=== PATIENT | male | born 1955 | race Caucasian/White ===

== ENCOUNTER 2016-07-15 08:14 | Outpatient (CLI) | payer OTHER | END 2016-07-15 08:15 | disposition home or self-care (01) | LOC: LAB.F 08:14 | PROVIDERS: ATTEND Urology | DX: Z85.46 Personal history of malignant neoplasm of prostate (principal) | CPT/HCPCS: 36415; 84153 ==

== ENCOUNTER 2016-08-09 08:27 | Day surgery (SDC) | payer OTHER ==
[2016-08-09] MEDS ORDERED: LACTATED RINGERS 1,000 ML IV ONE (08:57)
[2016-08-09] MEDS ORDERED: fentaNYL 100 MCG/2 ML VIAL IVP ONE (09:10)
[2016-08-09] MEDS ORDERED: MIDAZOLAM 2 MG/2 ML VIAL IVP ONE (09:10)
[2016-08-09 09:11] LABS: BASOPHILS % (AUTO) 0.7 %; EOSINOPHILS # (AUTO) 0.3 10^3/uL (0.0-0.7); EOSINOPHILS % (AUTO) 5.3 %; HCT - HEMATOCRIT 41.2 % (42.0-52.0); HGB - HEMOGLOBIN 14.2 g/dL (14.0-18.0); LYMPHOCYTES # (AUTO) 1.6 10^3/uL (1.5-3.5); LYMPHOCYTES % (AUTO) 32.1 %; MEAN CORPUSCULAR HEMOGLOBIN 30.6 pg (27.0-31.0); MEAN CORPUSCULAR HGB CONC 34.5 g/dL (32.0-36.0); MEAN CORPUSCULAR VOLUME 88.6 fL (80.0-94.0); MEAN PLATELET VOLUME 7.6 fL (7.4-11.4); MONOCYTES # (AUTO) 0.4 10^3/uL (0.0-1.0); MONOCYTES % (AUTO) 8.1 %; NEUTROPHILS # (AUTO) 2.7 10^3/uL (1.5-6.6); NEUTROPHILS % (AUTO) 53.8 %; RED BLOOD COUNT 4.65 10^6/uL (4.70-6.10)
--- NOTE | 2016-08-09 10:11 | POST OP PROGRESS NOTE ---
Subjective - General Procedure Date: 08/09/16 (outpt procedure) Post Op Days: 1 Procedure Performed: colonoscopy with polypectomy Surgery Impression Plan - FEN FEN: Preop dx: h/o colon polyps Postop dx: 1. colon polyp x3; 2. mild diverticulosis Procedure: colonoscopy with polypectomy (snare and cold bx forceps) Surgeon: Deloris Pagan MD Anesthesia: conscious sedation Procedure: After informed consent was obtained, the pt was taken to the endo room and placed in the lateral decubitus position. A time-out was done and IV sedation was given. A rectal exam was done and small hemorrhoids were noted. The scope was then inserted and guided under direct visualization. The pt was noted to has mild scattered diverticula in the sigmoid and left colon. 2 polyps were noted very close to each other at 40cm and removed by hot snare polypectomy and sent together. An additional polyp was noted at 90cm and was removed peicemeal with the cold bx forceps. The entire polyp was removed, then the polypectomy site was cauterized. The scope was advanced to the cecum which was identified by landmarks. The scope was then slowly withdrawn while carefully visualizing the colon wall. No other polyps or abnormalities were seen. The scope was removed. The pt was sent to the recovery area in stable condition with no immediate postop complications.
[2016-08-09 11:21] VITALS: BP 119/66
== END 2016-08-09 08:28 | disposition home or self-care (01) ==
LOC: SDS 08:27
PROVIDERS: ATTEND Surgery
PROC: 0DBE8ZX Excision of Large Intestine, Via Natural or Artificial Opening Endoscopic, Diagnostic (ICD-10-PCS; principal; 2016-08-09 09:30)
DX: K63.5 Polyp of colon (principal); K64.4 Residual hemorrhoidal skin tags; K57.30 Diverticulosis of large intestine without perforation or abscess without bleeding; E66.9 Obesity, unspecified; G47.30 Sleep apnea, unspecified; Z68.35 Body mass index [BMI] 35.0-35.9, adult; Z85.46 Personal history of malignant neoplasm of prostate
CPT/HCPCS: 45380; 45385; 85025; J7120; 88305

== ENCOUNTER 2016-08-15 15:17 | Outpatient (CLI) | payer OTHER | END 2016-08-15 15:18 | disposition home or self-care (01) | LOC: SC 15:17 | PROVIDERS: ATTEND Nurse Practitioner Family | DX: G47.33 Obstructive sleep apnea (adult) (pediatric) (principal) | CPT/HCPCS: 99212; 99213 ==

== ENCOUNTER 2017-05-01 17:30 | Emergency (ER) | payer OTHER ==
[2017-05-01] MEDS ORDERED: MORPHINE 2 MG/ML CARPUJECT IVP STA (17:58)
--- NOTE | 2017-05-01 18:00 | ED Physician Documentation ---
PD HPI ABD PAIN - Stated complaint Stated Complaint: LWR L ABD PAIN - Chief complaint Chief Complaint: Abd Pain - History obtained from History obtained from: Patient - History of Present Illness Timing - onset: Other (Had 4 hours of left lower quadrant pain 2 nights ago and it recurred earlier this afternoon. It is sharp and he feels like he might have diarrhea but he has not had any. He is also been a little nauseous but is not currently. Pain does not radiate. He had a colonoscopy in the middle of last year showing polyps and diverticula. He has never had diverticulosis.) Review of Systems Ten Systems: 10 systems reviewed and negative Constitutional: denies: Fever, Chills Cardiac: denies: Chest pain / pressure, Palpitations Respiratory: denies: Dyspnea, Cough PD PAST MEDICAL HISTORY - Past Medical History Cardiovascular: None Respiratory: Sleep apnea, CPAP use Endocrine/Autoimmune: None GI: Colon polyps : Other HEENT: Chronic vision loss, Dental implants Psych: Depression Musculoskeletal: None Derm: Psoriasis - Past Surgical History General: Colonoscopy, Other HEENT: Other - Present Medications Home Medications: Ambulatory Orders Medication Instructions Recorded Confirmed Cyanocobalamin (Vitamin B-12) 1,000 mcg PO DAILY 08/09/16 08/09/16 [Vitamin B-12] HYDROcod/ACETAM 5/325 [[place] 5/325] 1 - 2 ea PO Q6H PRN #15 tablet 05/01/17 Tamsulosin [Flomax] 0.4 mg PO DAILY #14 capsule 05/01/17 - Allergies Allergies/Adverse Reactions: Allergies Allergy/AdvReac Type Severity Reaction Status Date / Time No Known Drug Allergies Allergy Verified 05/01/17 17:42 - Social History Does the pt smoke?: No Smoking Status: Never smoker Does the pt drink ETOH?: No Does the pt have substance abuse?: No PD ED PE NORMAL - Vitals Vital signs reviewed: Yes - General General: Alert and oriented X 3, No acute distress - HEENT HEENT: Other (Periorbital droop on the right, chronic per patient) - Cardiac Cardiac: RRR, No murmur - Respiratory Respiratory: No respiratory distress, Clear bilaterally - Abdomen Abdomen: Normal bowel sounds, Soft, Other (Mild tenderness left lower quadrant without surgical signs) - Back Back: No CVA TTP, No spinal TTP - Extremities Extremities: No edema - Neuro Neuro: Alert and oriented X 3, Normal speech Results - Vitals Vitals: Vital Signs - 24 hr 05/01/17 17:37 Temperature 37.2 C Heart Rate 72 Respiratory 18 Rate Blood Pressure 135/82 H O2 Saturation 97 Oxygen O2 Source Room air - Labs Labs: Laboratory Tests 05/01/17 05/01/17 05/01/17 18:10 18:10 18:30 WBC 12.8 H RBC 4.78 Hgb 14.3 Hct 43.0 MCV 89.8 MCH 30.0 MCHC 33.4 RDW 12.6 Plt Count 237 MPV 7.6 Neut # 10.9 H Lymph # 1.0 L Darke # 0.7 Eos # 0.1 Baso # 0.0 Absolute Nucleated RBC 0.00 Nucleated RBC % 0.0 Sodium 142 Potassium 4.1 Chloride 109 Carbon Dioxide 25 Anion Gap 8.0 BUN 20 Creatinine 1.3 H Estimated GFR (MDRD) 56 L Glucose 116 H Calcium 9.0 Total Bilirubin 0.3 AST 24 ALT 26 Alkaline Phosphatase 72 Total Protein 7.5 Albumin 4.2 Globulin 3.3 Albumin/Globulin Ratio 1.3 Lipase 24 Urine Color YELLOW Urine Clarity HAZY Urine pH 5.5 Ur Specific [place] >=1.030 H Urine Protein NEGATIVE Urine Glucose (UA) NEGATIVE Urine Ketones NEGATIVE Urine Occult Blood SMALL H Urine Nitrite NEGATIVE Urine Bilirubin NEGATIVE Urine Urobilinogen 0.2 (NORMAL) Ur Leukocyte Esterase NEGATIVE Urine RBC 0-5 Urine WBC 0-3 Ur Squamous Epith Cells NONE SEEN Urine Bacteria None Seen Ur Microscopic Review INDICATED Urine Culture Comments NOT INDICATED - Rads (name of study) CT A/P Radiology: EMP read contemporaneously (3mm L UVJ stone) PD MEDICAL DECISION MAKING - ED course ED course: 62-year-old gentleman with history of diverticulosis with a days worth of left lower quadrant pain and a benign examination. Found by CT imaging to have a 3 mm left UVJ stone without evidence of infected urinalysis. Pain-free after single round of medication here. Departure - Departure Disposition: 01 Home, Self Care Clinical Impression: Renal colic on left side Condition: Good Record reviewed to determine appropriate education?: Yes Instructions: ED Stone Renal W Colic Prescriptions: HYDROcod/ACETAM 5/325 [[place] 5/325] 1 - 2 ea PO Q6H PRN #15 tablet PRN Reason: Pain Tamsulosin [Flomax] 0.4 mg PO DAILY #14 capsule Comments: Call your doctor to arrange a follow-up appointment, make the next available appointment. In the interim, return anytime if worse or if new symptoms develop. Do not drink or drive while taking narcotic pain medication. Note that many narcotic pain relievers also contain Tylenol/acetaminophen. Please ensure that your total dose of acetaminophen from all sources does not exceed 3 g (3000 mg) per day. You may get constipated while on this medication. Take a stool softener such as Colace twice a day while you are on it. Also add an [id number] laxative such as senna or MiraLAX on any day that you do not have a bowel movement. If you received a narcotic pain medication or sedative while in the emergency department, do not drive for the next 24 hours. Your blood pressure was elevated today on check into the emergency department. This does not mean that you have hypertension, it is a common phenomenon to come to the emergency department and have elevated blood pressure. I recommend that you see your primary care physician within the week to have it rechecked when you are feeling better.
[2017-05-01] MEDS ORDERED: MORPHINE 2 MG/ML SYRINGE IVP STA (18:01)
[2017-05-01] MEDS ORDERED: IOPAMIDOL-300 100 ML VIAL ONE (18:17)
[2017-05-01 18:18] LABS: BASOPHILS % (AUTO) 0.3 %; EOSINOPHILS # (AUTO) 0.1 10^3/uL (0.0-0.7); EOSINOPHILS % (AUTO) 0.6 %; HGB - HEMOGLOBIN 14.3 g/dL (14.0-18.0); MEAN CORPUSCULAR HGB CONC 33.4 g/dL (32.0-36.0); MEAN CORPUSCULAR VOLUME 89.8 fL (80.0-94.0); MEAN PLATELET VOLUME 7.6 fL (7.4-11.4); MONOCYTES # (AUTO) 0.7 10^3/uL (0.0-1.0); MONOCYTES % (AUTO) 5.5 %; NEUTROPHILS # (AUTO) 10.9 10^3/uL (1.5-6.6); NEUTROPHILS % (AUTO) 85.6 %; PLT - PLATELET COUNT 237 10^3/uL (130-450); RED BLOOD COUNT 4.78 10^6/uL (4.70-6.10); RED CELL DISTRIBUTION WIDTH 12.6 % (12.0-15.0); WHITE BLOOD COUNT 12.8 x10^3/uL (4.8-10.8)
[2017-05-01 18:28] LABS: ALBUMIN 4.2 g/dL (3.2-5.5); ALBUMIN/GLOBULIN RATIO 1.3 (1.0-2.2); BILIRUBIN,TOTAL 0.3 mg/dL (0.2-1.0); CREATININE 1.3 mg/dL (0.6-1.2); TOTAL PROTEIN 7.5 g/dL (6.7-8.2)
[2017-05-01 18:35] LABS: BILIRUBIN,URINE NEGATIVE (NEGATIVE); GLUCOSE, URINE (UA) NEGATIVE (NEGATIVE); KETONES,URINE (UA) NEGATIVE (NEGATIVE); LEUKOCYTE ESTERASE, URINE NEGATIVE (NEGATIVE); NITRITE,URINE NEGATIVE (NEGATIVE); OCCULT BLOOD,URINE SMALL (NEGATIVE); PH,URINE 5.5 PH (5.0-7.5); PROTEIN,URINE NEGATIVE (NEGATIVE); UROBILINOGEN,URINE 0.2 (NORMAL) E.U./dL (NORMAL)
[2017-05-01 18:40] LABS: CLARITY,URINE HAZY (CLEAR)
[2017-05-01 18:50] LABS: BACTERIA,URINE None Seen /HPF (None Seen); RBC,URINE 0-5 /HPF (0-5); SQUAMOUS EPITHELIAL CELL,UR NONE SEEN (<= Few)
[2017-05-01] MEDS ORDERED: IOPAMIDOL-300 100 ML VIAL IVP ONE (19:08)
--- NOTE | 2017-05-01 19:28 | CT Report ---
EXAM: CT ABDOMEN AND PELVIS EXAM DATE: 05/01/2017 07:08 PM. CLINICAL HISTORY: IV only, LLQ pain. COMPARISONS: 07/05/2013. TECHNIQUE: Routine helical CT imaging was performed through the abdomen and pelvis. IV contrast: ISOV UE 300 80mL. Enteric contrast: No. Reconstructions: Coronal and sagittal. In accordance with CT protocol optimization, one or more of the following dose reduction techniques w ere utilized for this exam: automated exposure control, adjustment of mA and/or KV based on patient s ize, or use of iterative reconstructive technique. FINDINGS: Lung Bases: Unremarkable. Liver: Normal. No masses. Gallbladder/Bile Ducts: Unremarkable. Spleen: Normal. Pancreas: Normal. Adrenal Glands: Normal. Kidneys: Distal left ureteral stone measuring about 3-4 mm just before the UVJ with mild hydronephros is and slightly delayed enhancement. Small renal cysts. Mild perinephric fat stranding. Otherwise unr emarkable. Peritoneal Cavity/Bowel: Mild colonic diverticulosis. No free fluid, free air or adenopathy. No roddy s or acute inflammatory process. The appendix is well visualized and normal. Pelvic Organs: Unremarkable decompressed urinary bladder. Therapy seeds in the prostate bed. Vasculature: No aneurysms or other significant abnormality. Bones: No significant abnormality. Other: None. IMPRESSION: 1. Distal left ureteral stone measuring 3-4 mm with mild hydronephrosis. 2. Other chronic or incidental findings. [facility] Referring Provider Line: [phone] SITE ID: [id number]
[2017-05-01] MEDS ORDERED: HYDROcod/ACET 5/325 Prepack 4 PO STA (19:32)
[2017-05-01] MEDS ORDERED: TAMSULOSIN 0.4 MG CAPSULE PO STA (19:32)
[2017-05-01 19:41] VITALS: BP 125/78
== END 2017-05-01 19:50 | disposition home or self-care (01) ==
LOC: ED 17:30
DX: N20.1 Calculus of ureter (principal); R03.0 Elevated blood-pressure reading, without diagnosis of hypertension
CPT/HCPCS: 36415; 74177; 80053; 81001; 83690; 85025; 96374; 99283; 99284; A9270; J2270; Q9967; 81003; 87086

== ENCOUNTER 2017-05-04 01:41 | Emergency (ER) | payer OTHER ==
[2017-05-04] MEDS ORDERED: KETOROLAC 60 MG/2 ML VIAL IVP STA (02:15)
[2017-05-04] MEDS ORDERED: SODIUM CHLORIDE 0.9% 1,000 ML IV ONE (02:15)
[2017-05-04] MEDS ORDERED: ONDANSETRON 4 MG/2 ML VIAL IVP STA (02:15)
--- NOTE | 2017-05-04 02:15 | ED Physician Documentation ---
PD HPI MALE - Stated complaint Stated Complaint: L FLANK PX - Chief complaint Chief Complaint: Abd Pain - History obtained from History obtained from: Patient, Family - History of Present Illness Timing - onset: Today Timing - details: Abrupt onset, Still present Associated symptoms: Testiclar pain. No: Urinary frequency Similar symptoms before: Work up / diagnostics, Treatment Recently seen: Emergency Dept - Additional information Additional information: Patient is a 62 year old male presenting to the emergency department for left sided abdominal pain. Patient was seen a few days prior and diagnosed with a 3mm stone. patient states that he was told to drink a lot of fluids so today he drank almost [address] pepper. patient states that earlier today it felt like he had an ache in his left testicle and he later developed left lower abdominal pain. patient denies nausea or vomiting. Review of Systems Constitutional: denies: Fever, Chills Eyes: reports: Reviewed and negative Ears: reports: Reviewed and negative Nose: reports: Reviewed and negative Throat: reports: Reviewed and negative Cardiac: reports: Reviewed and negative Respiratory: reports: Reviewed and negative GI: reports: Abdominal Pain, Nausea. denies: Vomiting, Constipation, Diarrhea : reports: Hematuria. denies: Dysuria Skin: denies: Rash, Lesions Musculoskeletal: reports: Reviewed and negative Neurologic: reports: Reviewed and negative Psychiatric: reports: Reviewed and negative Endocrine: reports: Reviewed and negative PD PAST MEDICAL HISTORY - Past Medical History Cardiovascular: None Respiratory: Sleep apnea, CPAP use Endocrine/Autoimmune: None GI: Colon polyps : Other HEENT: Chronic vision loss, Dental implants Psych: Depression Musculoskeletal: None Derm: Psoriasis - Past Surgical History General: Colonoscopy, Other HEENT: Other - Present Medications Home Medications: Ambulatory Orders Medication Instructions Recorded Confirmed Cyanocobalamin (Vitamin B-12) 1,000 mcg PO DAILY 08/09/16 08/09/16 [Vitamin B-12] HYDROcod/ACETAM 5/325 [[place] 5/325] 1 - 2 ea PO Q6H PRN #15 tablet 05/01/17 Tamsulosin [Flomax] 0.4 mg PO DAILY #14 capsule 05/01/17 - Allergies Allergies/Adverse Reactions: Allergies Allergy/AdvReac Type Severity Reaction Status Date / Time No Known Drug Allergies Allergy Verified 05/01/17 17:42 - Social History Does the pt smoke?: No Smoking Status: Never smoker Does the pt drink ETOH?: No Does the pt have substance abuse?: No PD ED PE NORMAL - Vitals Vital signs reviewed: Yes - General General: Alert and oriented X 3 - HEENT HEENT: Atraumatic - Neck Neck: Supple, no meningeal sign - Cardiac Cardiac: RRR - Respiratory Respiratory: No respiratory distress - Derm Derm: Normal color, Warm and dry, No rash - Extremities Extremities: No deformity, Normal ROM s pain - Neuro Neuro: Alert and oriented X 3 Eye Opening: Spontaneous PD ED PE EXPANDED - General General: Alert, In Pain - HEENT HEENT: Dry mucous membranes - Abdomen Abdomen: Tender to palpation, LLQ. No: Rebound, Guarding Results - Vitals Vitals: Vital Signs - 24 hr 05/04/17 05/04/17 01:48 04:25 Temperature 36.7 C Heart Rate 65 51 L Respiratory 19 14 Rate Blood Pressure 138/65 H 118/65 O2 Saturation 94 100 Oxygen O2 Source Room air - Labs Labs: Laboratory Tests 05/04/17 02:22 Urine Color YELLOW Urine Clarity CLEAR Urine pH 6.5 Ur Specific [place] 1.025 Urine Protein 30 H Urine Glucose (UA) NEGATIVE Urine Ketones NEGATIVE Urine Occult Blood SMALL H Urine Nitrite NEGATIVE Urine Bilirubin NEGATIVE Urine Urobilinogen 0.2 (NORMAL) Ur Leukocyte Esterase NEGATIVE Urine RBC 11-25 H Urine WBC 0-3 Ur Squamous Epith Cells NONE SEEN Urine Bacteria None Seen Urine Mucus Few Strands Ur Microscopic Review INDICATED Urine Culture Comments NOT INDICATED PD MEDICAL DECISION MAKING - ED course Complexity details: reviewed old records, reviewed results, re-evaluated patient , considered differential, d/w patient, d/w family ED course: Patient was seen and examined at bedside. IV access was gained. Patient was treated with a fluid bolus and toradol. Urine was collected. Patient's urine showed no signs of infection and patient's pain resolved with the toradol. patient and family were given detailed discharge and follow up instructions. Patient had no vomiting and was well appearing. patient was appropriate for outpatient follow up. Departure - Departure Disposition: 01 Home, Self Care Clinical Impression: Renal colic on left side Condition: Good Instructions: ED Stone Renal W Colic Follow-Up: Sandra Paez MD [Primary Care Provider] - Comments: Your symptoms today are being caused by renal colic and your kidney stone. You need to stop drinking soda and increase your water intake. You can continue with your pain medications. You should follow up with your doctor as needed. You may return to the emergency department at any time for new, worsening or uncontrollable symptoms. Discharge Date/Time: 05/04/17 04:26
[2017-05-04 02:42] LABS: BILIRUBIN,URINE NEGATIVE (NEGATIVE); GLUCOSE, URINE (UA) NEGATIVE (NEGATIVE); KETONES,URINE (UA) NEGATIVE (NEGATIVE); LEUKOCYTE ESTERASE, URINE NEGATIVE (NEGATIVE); NITRITE,URINE NEGATIVE (NEGATIVE); OCCULT BLOOD,URINE SMALL (NEGATIVE); PH,URINE 6.5 PH (5.0-7.5); PROTEIN,URINE 30 mg/dL (NEGATIVE); UROBILINOGEN,URINE 0.2 (NORMAL) E.U./dL (NORMAL)
[2017-05-04 02:53] LABS: CLARITY,URINE CLEAR (CLEAR)
[2017-05-04 02:54] LABS: BACTERIA,URINE None Seen /HPF (None Seen); MUCUS,URINE Few Strands; SQUAMOUS EPITHELIAL CELL,UR NONE SEEN (<= Few)
[2017-05-04 04:26] VITALS: BP 118/65
== END 2017-05-04 04:26 | disposition home or self-care (01) ==
LOC: ED 01:41
DX: N23 Unspecified renal colic (principal)
CPT/HCPCS: 81001; 81003; 87086; 96361; 96374; 96375; 99283; 99284

== ENCOUNTER 2017-05-08 08:00 | Outpatient (CLI) | payer OTHER | END 2017-05-08 08:01 | disposition home or self-care (01) | LOC: LAB.R 08:00 | PROVIDERS: ATTEND Internal Medicine | DX: N20.0 Calculus of kidney (principal) | CPT/HCPCS: 82365 ==

== ENCOUNTER 2017-09-12 09:45 | Outpatient (CLI) | payer OTHER | END 2017-09-12 09:46 | disposition home or self-care (01) | LOC: SC 09:45 | PROVIDERS: ATTEND Internal Medicine Pulmonary Disease | DX: G47.33 Obstructive sleep apnea (adult) (pediatric) (principal) | CPT/HCPCS: 99212; 99213 ==

== ENCOUNTER 2018-04-09 07:24 | Outpatient (CLI) | payer MEDICARE | END 2018-04-09 07:25 | LOC: LAB.F 07:24 | PROVIDERS: ATTEND Urology | DX: C61 Malignant neoplasm of prostate (principal) | CPT/HCPCS: 36415; 84153 ==

== ENCOUNTER 2018-07-17 09:24 | Outpatient (CLI) | payer MEDICARE, OTHER ==
[2018-07-17 18:09] LABS: PSA TOTAL 0.019 ng/mL (0.000-2.000)
== END 2018-07-17 09:25 | disposition home or self-care (01) ==
LOC: LAB.F 09:24
PROVIDERS: ATTEND Urology
DX: C61 Malignant neoplasm of prostate (principal)
CPT/HCPCS: 36415; 84153; 84403

== ENCOUNTER 2018-10-31 09:00 | Outpatient (CLI) | payer MEDICARE, OTHER ==
[2018-10-31 10:17] VITALS: BP 120/72
--- NOTE | 2018-10-31 10:17 | SLEEP CARE CONSULTATION ---
Information from patient questionnaire entered by Zo Merlos. I have reviewed and concur with the information entered by Zo Merlos. This document represents the service I personally performed and the decisions made by me, Tania Camarillo, RN, MSN, SINTER PRESS OPERATOR. History of Present Illness Previous diagnosis: Moderate, Obstructive Sleep Apnea-Hypopnea Syndrome AHI: 17 Reason for CPAP/BiPAP follow up: annual Equipment type: CPAP Equipment obtained from: [employer] Mask style: Nasal Mask brand: Respironics Backup mask available: Yes Last cushion change: 6 weeks ago CPAP Compliance Data - Data Reviewed with Patient Average duration of nightly device use: 9.4 Compliance rate %: 95.6 (180 days) Current pressure setting (cmH2O): 11 Humidity settin Heated hose settin Average residual AHI: 0.7 Average large leak: 1 min 4 secs Subjective Missed days of use due to: reports: other (sleeping in hospital couch while spouse hospitalized in ICU) Patient concerns: reports: other (indent in hair at top of head where mask body sits and can affect hair placment.). denies: aerophagia, mask discomfort, air blowing in eyes, mask leak noise, condensation in mask/hose, nasal congestion, dry mouth, nose, throat, epistaxis Observed to snore while using device: No Current pressure setting perceived as: comfortable On therapy, patient: reports: sleeping better, awakening more refreshed, being more awake and alert during the day, more rested overall. denies: drowsiness while driving Initial [place] Sleepiness Scale score: 7 Current [place] Sleepiness Scale score: 1 Allergies and Home Medications Known drug allergies: No Home medication list reviewed: Yes (none) Review of Systems Review of systems same as previous: Yes Physical Exam Blood Pressure: 120/72 Cuff size: long Heart Rate: 64 O2 Saturation: 96 Height: 6 ft 2 in Weight (kg): 270 lb 12.8 oz Weight change since last visit: gained 5 pounds Body Mass Index: 34.7 BMI Classification: Class 1 Impression and Plan 1. Obstructive Sleep Apnea-Hypopnea Syndrome, moderate, with good treatment compliance and good apnea control. On CPAP therapy, the patient has better sleep quality and is more rested overall. Pad a Cheek information given to see if a cloth barrier for mask body could reduce hair / indent from mask body. Since his BMI is 34 and shows mild obesity, I discussed how his weight can affect overall health and apnea risk. His best weight was 225 when played football which is BMi 29. I explained how muscle mass is heavier than fat and to work on losing abdominal weight. If loses significant weight his CPAP pressure may reduce. Symptoms to report discussed. Methods to lose weight discussed such as whole foods, portion control. He agreed he needed to lose weight but process will be slow. Patient's apnea severity and rationale for treatment to reduce apnea, improve sleep quality and reduce cardiovascular and cerebrovascular events was reviewed. Since his apnea is more severe supine, if unable to use CPAP as in recent hospital, he is to avoid sleeping supine. * Continue CPAP pressure at 11 cmH2O * Notify me if snoring with mask or feeling that the pressure is too much or too little * Attempt to lose weight * Return for follow up in 1 year , or sooner if concerns arise I spent 100% of this 20 minute visit face to face with the patient with greater than 50% of this was spent time counseling the patient and coordination of care.
== END 2018-10-31 09:01 | disposition home or self-care (01) ==
LOC: SC 09:00
PROVIDERS: ATTEND Nurse Practitioner Family
DX: G47.33 Obstructive sleep apnea (adult) (pediatric) (principal); E66.9 Obesity, unspecified; Z68.34 Body mass index [BMI] 34.0-34.9, adult
CPT/HCPCS: 99213; G0463; 99212

== ENCOUNTER 2019-01-08 13:45 | Outpatient (CLI) | payer MEDICARE, OTHER | END 2019-01-08 13:46 | disposition home or self-care (01) | LOC: LAB.S 13:45 | PROVIDERS: ATTEND Urology | DX: C61 Malignant neoplasm of prostate (principal) | CPT/HCPCS: 36415; 84153 ==

== ENCOUNTER 2019-11-11 10:51 | Outpatient (CLI) | payer MEDICARE, OTHER ==
[2019-11-11 11:30] VITALS: BP 134/74
--- NOTE | 2019-11-11 11:30 | SLEEP CARE CONSULTATION ---
Information from patient questionnaire entered by Zo Merlos. I have reviewed and concur with the information entered by Zo Merlos. This document represents the service I personally performed and the decisions made by me, Tania Camarillo, RN, MSN, PESTICIDE CHEMIST. History of Present Illness Service Date and Time: 11/11/2019 1051 Previous diagnosis: Moderate, Obstructive Sleep Apnea-Hypopnea Syndrome AHI: 17 (in 2009) Reason for follow up: annual (last seen 2018) Equipment type: CPAP Equipment obtained from: [employer] (getting supplies as needed) Mask style: Nasal Backup mask available: Yes (old mask) Last cushion change: a couple of weeks ago Prior sleep studies: Yes Year and Where: 2009 - [facility] Type of Sleep Study: Polysomnography CPAP Compliance Data - Data Reviewed with Patient Average duration of nightly device use: 9.5 Compliance rate %: 100 (180 days) Current pressure setting (cmH2O): 11 Humidity settin Heated hose settin Average residual AHI: 0.9 Average large leak: 2 min 25 sec On Oxygen: No Subjective Missed days of use due to: reports: family emergency Patient concerns: denies: aerophagia, mask discomfort, air blowing in eyes, mask leak noise, condensation in mask/hose, nasal congestion, dry mouth, nose, throat, epistaxis, other Observed to snore while using device: No Current pressure setting perceived as: comfortable On therapy, patient: reports: sleeping better, awakening more refreshed, being more awake and alert during the day, more rested overall, other. denies: drowsiness while driving Initial [place] Sleepiness Scale score: 7 (in 2008) Current [place] Sleepiness Scale score: 1 Allergies and Home Medications Known drug allergies: No Home medication list reviewed: No (no medications) Physical Exam Blood Pressure: 134/74 Cuff size: long Heart Rate: 74 O2 Saturation: 97 Height: 6 ft 2 in Weight: 251 lb 8 oz Weight change since last visit: lost 19 pounds Body Mass Index: 32.3 BMI Classification: Obese Impression and Plan 1. Obstructive Sleep Apnea-Hypopnea Syndrome,moderate , with good treatment compliance and good apnea control. On CPAP therapy, the patient has better sleep quality and is more rested overall. Patient's sleep time of 9.7 hours includes time of wind down with CPAP on. Patient pleased with treatment benefit. Patient has lost weight. Currently patients BMI is 32.3 obesity class . Obesity increases the risk of apnea, CPAP pressure requirements and overall health risks especially cardiovascular and diabetes. Thus patient is advised to continue to lose weight. He is feeling better with weight loss and increase in exercise. Weight loss can be done with reducing portion size, reducing refined foods and balancing content with vegetables, fruit and protein. Also eating more slowly will allow more awareness of food intake and enjoyment of food while assisting patient to modify intake at each meal. A diet consultation can be helpful in achieving optimal weight loss goals. The BMI chart was reviewed. The patient would like to reduce to 5 more pounds. I counseled on losing a little more weight and to concentrate on losing central obesity with rationale discussed. Patient encouraged to discuss their weight loss goals with their PCP and consider a referral to a cyber operator. The patient's CPAP pressure range should accommodate some weight loss. He does not want this changed to an auto CPAP range at this time. Symptoms to report for additional pressure adjustment discussed. Patient's apnea severity and rationale for treatment to reduce apnea, improve sleep quality and reduce cardiovascular and cerebrovascular events was reviewed. * Continue auto CPAP pressure at 11 cmH2O * Notify me if snoring with mask or feeling that the pressure is too much or too little * Continue to lose weight * Call this office if any problems using CPAP * Return for follow up in 1 year, or sooner if concerns arise Counseling Topics: Weight loss health impact, Weight control Visit Type: In Office Time Spent with Patient (minutes): 20 Provider Statement: I spent 100% of the Face to Face Visit with the patient with greater than 50% spent counseling the patient and coordination of care.
== END 2019-11-11 10:52 | disposition home or self-care (01) ==
LOC: SC 10:51
PROVIDERS: ATTEND Nurse Practitioner Family
DX: G47.33 Obstructive sleep apnea (adult) (pediatric) (principal); E66.9 Obesity, unspecified; Z68.32 Body mass index [BMI] 32.0-32.9, adult
CPT/HCPCS: 99213; G0463; 99212

== ENCOUNTER 2020-08-12 14:55 | Outpatient (CLI) | payer MEDICARE, OTHER | END 2020-08-12 14:56 | disposition home or self-care (01) | LOC: LAB.S 14:55 | PROVIDERS: ATTEND Urology | DX: Z85.46 Personal history of malignant neoplasm of prostate (principal) | CPT/HCPCS: 36415; 84153 ==

== ENCOUNTER 2020-10-21 11:17 | Outpatient (CLI) | payer MEDICARE, OTHER ==
[2020-10-21 12:02] VITALS: BP 142/82
--- NOTE | 2020-10-21 12:02 | SLEEP CARE CONSULTATION ---
Information from patient questionnaire entered by Parvin Dorsey. I have reviewed and concur with the information entered by Parvin Dorsey. This document represents the service I personally performed and the decisions made by , Amrita King ARNP. History of Present Illness Service Date and Time: 10/21/2020 1117 Previous diagnosis: Moderate, Obstructive Sleep Apnea-Hypopnea Syndrome AHI: 17 (in 2009) Reason for follow up: annual (Last seen 10/2019) Equipment type: CPAP Equipment obtained from: [employer] (getting supplies as needed) Mask style: Nasal Backup mask available: Yes (old mask) Last cushion change: 2 weeks Prior sleep studies: Yes Year and Where: 2009 - [facility] Type of Sleep Study: Polysomnography HPI additional information: HALEY JAMES was diagnosed to have moderate, AHI 27, obstructive sleep apnea- hypopnea syndrome and returned today for CPAP therapy annual follow-up. CPAP Compliance Data - Data Reviewed with Patient Average duration of nightly device use: 9 h 42 min Compliance rate %: 100 Current pressure setting (cmH2O): 11 Humidity settin Heated hose settin Average residual AHI: 0.9 Average large leak: 2 min 16 sec Subjective Patient concerns: denies: aerophagia, mask discomfort, air blowing in eyes, mask leak noise, condensation in mask/hose, nasal congestion, dry mouth, nose, throat, epistaxis, other Observed to snore while using device: No Current pressure setting perceived as: comfortable On therapy, patient: reports: sleeping better, awakening more refreshed, being more awake and alert during the day, more rested overall. denies: drowsiness while driving Initial [place] Sleepiness Scale score: 7 (in 2008) Current [place] Sleepiness Scale score: 2 Allergies and Home Medications Home medication list reviewed: Yes (no changes) Review of Systems Review of systems same as previous: Yes (no changes) Physical Exam Blood Pressure: 142/82 Cuff size: wrist Heart Rate: 57 O2 Saturation: 96 Height: 6 ft 2 in Weight: 248 lb Body Mass Index: 31.8 BMI Classification: Obese Impression and Plan 1. Obstructive Sleep Apnea-Hypopnea Syndrome, moderate, with excellent treatment compliance and excellent apnea control. On CPAP therapy, the patient has better sleep quality and is more rested overall. Patient is very satisfied with his CPAP therapy. He has no complaints or concerns. I informed the patient that [employer] has a recall on several devices like the patients machine. Patient was encouraged to register their device online with [employer] for the recall to see if their device is affected. If their device is affected they should start a claim. Patient denies any black particles seen in machine or hoses, any unusual odors coming from device. Patient has not experienced any physical symptoms such as upper airway irritation, headache, skin or eye irritation, asthma, nausea/vomiting, difficulty breathing or chest pain. Patient informed that they may use an inline CPAP filter that they can obtain online to reduce chance of any particles being inhaled or ingested. We discussed thoroughly the health risks of not using the CPAP versus continuing use with the filter in place. If patient is not able to sleep due to waking up choking, gasping for air or other respiratory distress that they may decide to continue using it until it is either replaced or repaired. Since the patients current machine is at least 5 years old the patient is opting to update their device with a device that is not on the recall. Patient voiced understanding and agreement with plan. Patient's apnea severity and rationale for treatment to reduce apnea, improve sleep quality and reduce cardiovascular and cerebrovascular events was reviewed. I also reviewed the benefit of consistent device use of CPAP for gastric reflux. Patient was encouraged to lose weight for their overall health and to reduce apneas. * Continue CPAP pressure at 11 cmH2O * Update device and supplies * Notify me if snoring with mask or feeling that the pressure is too much or too little * Attempt to lose weight * Call this office if any problems using CPAP * Return for follow up one month after getting new device, or sooner if concerns arise Counseling Topics: Spare mask, Weight loss health impact Visit Type: In Office Time Spent with Patient (minutes): 20 Provider Statement: I spent 100% of the Face to Face Visit with the patient with greater than 50% spent counseling the patient and coordination of care.
== END 2020-10-21 11:18 | disposition home or self-care (01) ==
LOC: SC 11:17
PROVIDERS: ATTEND Nurse Practitioner Family
DX: G47.33 Obstructive sleep apnea (adult) (pediatric) (principal); E66.9 Obesity, unspecified; Z68.31 Body mass index [BMI] 31.0-31.9, adult
CPT/HCPCS: 99213; G0463; 99212

== ENCOUNTER 2021-02-03 09:27 | Outpatient (CLI) | payer MEDICARE, OTHER ==
[2021-02-03 10:01] VITALS: BP 138/73
--- NOTE | 2021-02-03 10:01 | SLEEP CARE CONSULTATION ---
Information from patient questionnaire entered by Sherita Dela Cruz MA. I have reviewed and concur with the information entered by Sherita Dela Cruz MA. This document represents the service I personally performed and the decisions made by , Amrita King ARNP. History of Present Illness Service Date and Time: 02/03/2021 0927 Previous diagnosis: Moderate, Obstructive Sleep Apnea-Hypopnea Syndrome AHI: 17 (in 2009) Reason for follow up: first compliance (REPL MACHINE, SET UP 2 WEEKS AGO. ) Equipment type: CPAP Equipment obtained from: [employer] (getting supplies as needed) Mask style: Nasal (cushion) Backup mask available: Yes (old mask) Last cushion change: 2-3 weeks ago Prior sleep studies: Yes Year and Where: 2009 - [facility] Type of Sleep Study: Polysomnography HPI additional information: HALEY JAMES was diagnosed to have moderate, AHI 17, obstructive sleep apnea- hypopnea syndrome and returned today for CPAP therapy first compliance after updating device follow-up. Sleep Study - Results Type of Sleep Study: Polysomnography Prior sleep studies: Yes Year and Where: 2009 - [facility] CPAP Compliance Data Compliance data discussion: He got a iBreeze machine (patient pointed it out on a webpage as his new machine). He uses it every night with good compliance. We will have to request his compliance report from his DME. Once it is obtained I will add his compliance to this note. Subjective Patient concerns: denies: aerophagia, mask discomfort, air blowing in eyes, mask leak noise, condensation in mask/hose, nasal congestion, dry mouth, nose, throat, epistaxis, other Observed to snore while using device: No Current pressure setting perceived as: comfortable On therapy, patient: reports: sleeping better, awakening more refreshed, being more awake and alert during the day, more rested overall. denies: drowsiness while driving Initial [place] Sleepiness Scale score: 7 (in 2008) Current [place] Sleepiness Scale score: 1 (2020) Allergies and Home Medications Known drug allergies: No Drug allergies reviewed: Yes Home medication list reviewed: Yes (no changes) Review of Systems Review of systems same as previous: Yes (no changes) Physical Exam Vital signs obtained and entered by: Balwinder DELA CRUZ CMA AAJOON Blood Pressure: 138/73 (right) Cuff size: wrist Heart Rate: 68 O2 Saturation: 97 (with paper mask) Height: 6 ft 2 in Weight: 245 lb (without clothes) Weight change since last visit: 3 lb loss Body Mass Index: 31.4 BMI Classification: Obese Impression and Plan 1. Obstructive Sleep Apnea-Hypopnea Syndrome, moderate, with unknown treatment compliance and unknown apnea control. On CPAP therapy, the patient has better sleep quality and is more rested overall. We will continue to try to get his compliance download from his DME supplier. Patient has no issues with using his new device or mask. He is happy with the new device because it is very quiet. Patient's apnea severity and rationale for treatment to reduce apnea, improve sleep quality and reduce cardiovascular and cerebrovascular events was reviewed. I also reviewed the benefit of consistent device use of CPAP for gastric reflux. Patient has lost 3 pounds since his last visit. He states he has been trying to walk regularly since our last visit. He was encouraged to continue to try to lose weight for his overall health and to reduce apneas. * Continue CPAP pressure at 11.0 cmH2O * Notify me if snoring with mask or feeling that the pressure is too much or too little * Continue to try to lose weight * Call this office if any problems using CPAP * Return for follow up in 1 year, or sooner if concerns arise Counseling Topics: Spare mask, Weight loss health impact Visit Type: In Office Time Spent with Patient (minutes): 16 Provider Statement: I spent 100% of the Face to Face Visit with the patient with greater than 50% spent counseling the patient and coordination of care.
== END 2021-02-03 09:28 | disposition home or self-care (01) ==
LOC: SC 09:27
PROVIDERS: ATTEND Nurse Practitioner Family
DX: G47.33 Obstructive sleep apnea (adult) (pediatric) (principal); E66.9 Obesity, unspecified; Z68.31 Body mass index [BMI] 31.0-31.9, adult
CPT/HCPCS: 99212; G0463

== ENCOUNTER 2021-08-23 12:42 | Outpatient (CLI) | payer MEDICARE, OTHER | END 2021-08-23 12:43 | disposition home or self-care (01) | LOC: LAB.S 12:42 | PROVIDERS: ATTEND Urology | DX: Z85.46 Personal history of malignant neoplasm of prostate (principal) | CPT/HCPCS: 36415; 84153 ==

== ENCOUNTER 2022-04-05 10:03 | Outpatient (CLI) | payer MEDICARE, OTHER ==
[2022-04-05 10:41] VITALS: BP 128/70
--- NOTE | 2022-04-05 10:41 | SLEEP CARE CONSULTATION ---
Information from patient questionnaire entered by Meghna Jason. I have reviewed and concur with the information entered by Meghna Jason. This document represents the service I personally performed and the decisions made by me, Amrita King ARNP. History of Present Illness Service Date and Time: 04/05/2022 1003 Previous diagnosis: Moderate, Obstructive Sleep Apnea-Hypopnea Syndrome AHI: 17 (in 2009) Reason for follow up: annual (LAST SEEN) Equipment type: CPAP (Resvent IBreeze) Equipment obtained from: [employer] (getting supplies as needed) Mask style: Nasal (cushion) Mask brand: Respironics (Dreamwear) Backup mask available: Yes (old mask) Last cushion change: 1 month Prior sleep studies: Yes Year and Where: 2009 - [facility] Type of Sleep Study: Polysomnography HPI additional information: HALEY JAMES was diagnosed to have moderate, AHI 17, obstructive sleep apnea- hypopnea syndrome and returned today for CPAP therapy annual follow-up. Sleep Study - Results Type of Sleep Study: Polysomnography Prior sleep studies: Yes Year and Where: 2009 - [facility] CPAP Compliance Data - Data Reviewed with Patient Average duration of nightly device use: 9.4 hours Compliance rate %: 78 (287 days with 4+ hours) Current pressure setting (cmH2O): 11.0 Average residual AHI: 0.7 Central apnea: 0.0 Obstructive apnea: 0.3 Average large leak: 5.2 l/min Compliance data discussion: He has a ResVent IBreeze and we were unable to read his SD card. We pulled data from the machine but will reach out to his DME to see how we can get access to his data online. Subjective Missed days of use due to: reports: illness (upper respiratory illness), travel Patient concerns: denies: aerophagia, mask discomfort, air blowing in eyes, mask leak noise, condensation in mask/hose, nasal congestion, dry mouth, nose, throat, epistaxis Observed to snore while using device: Yes (possibly) Current pressure setting perceived as: comfortable (sometimes feels low?) On therapy, patient: reports: sleeping better, awakening more refreshed, being more awake and alert during the day, more rested overall. denies: drowsiness while driving Initial [place] Sleepiness Scale score: 7 (in 2008) Current [place] Sleepiness Scale score: 1 (04/05/22) Allergies and Home Medications Drug allergies reviewed: Yes (NKDA) Home medication list reviewed: Yes (no changes) Review of Systems Review of systems same as previous: Yes (no changes) Physical Exam Vital signs obtained and entered by: MEGHNA Wells MA Blood Pressure: 128/70 (LEFT ARM) Cuff size: regular Heart Rate: 72 O2 Saturation: 98 Height: 6 ft 2 in Weight: 238 lb 12.8 oz Weight change since last visit: 7 lb loss Body Mass Index: 30.7 BMI Classification: Obese Impression and Plan 1. Obstructive Sleep Apnea-Hypopnea Syndrome, moderate, with good treatment compliance and good apnea control. On CPAP therapy, the patient has better sleep quality and is more rested overall. Patient has significant improvement of their sleep apnea and is satisfied with current CPAP therapy. Patient denies problems with oral dryness, nasal congestion, epistaxis, skin irritation or aerophagia. Patient's apnea severity and rationale for treatment to reduce apnea, improve sleep quality and reduce cardiovascular and cerebrovascular events was reviewed. I also reviewed the benefit of consistent device use of CPAP for gastric reflux. 2. Obesity, unspecified. Currently patients BMI is 30.7. Obesity increases the risk of apnea, CPAP pressure requirements and overall health risks especially cardiovascular and diabetes. Thus patient is advised to lose weight. * Continue CPAP pressure at 11 cmH2O * Update supplies * Notify me if snoring with mask or feeling that the pressure is too much or too little * Attempt to lose weight * Call this office if any problems using CPAP * Return for follow up in 1 year, or sooner if concerns arise Counseling Topics: Spare mask, Weight loss health impact Visit Type: In Office Time Spent with Patient (minutes): 20 Provider Statement: I spent 100% of the Face to Face Visit with the patient with greater than 50% spent counseling the patient and coordination of care.
== END 2022-04-05 10:04 | disposition home or self-care (01) ==
LOC: SC 10:03
PROVIDERS: ATTEND Nurse Practitioner Family
DX: G47.33 Obstructive sleep apnea (adult) (pediatric) (principal); E66.9 Obesity, unspecified; Z68.30 Body mass index [BMI] 30.0-30.9, adult
CPT/HCPCS: 99213; G0463; 99212

== ENCOUNTER 2022-06-28 10:50 | Outpatient (CLI) | payer MEDICARE, OTHER ==
--- NOTE | 2022-06-28 11:40 | Ultrasound Report ---
PROCEDURE: Duplex Ext Veins Right INDICATIONS: EDEMA TECHNIQUE: Real-time imaging, as well as color and pulse Doppler interrogation, were performed of the lower extr emity deep veins from the inguinal ligament to the popliteal fossa. COMPARISON: None. FINDINGS: The deep veins are normally compressible, and free of intraluminal thrombus. Color and pu lse Doppler demonstrate normal phasic intraluminal flow. There is normal augmentation response to di stal compression maneuver. IMPRESSION: Negative examination for DVT. Reviewed by: Bj Severino MD on 06/28/2022 11:38 AM PDT Approved by: Bj Severino MD on 06/28/2022 11:38 AM PDT Station ID: [id number]
== END 2022-06-28 10:51 | disposition home or self-care (01) ==
LOC: DI 10:50
PROVIDERS: ATTEND Internal Medicine
DX: R60.9 Edema, unspecified (principal)

== ENCOUNTER 2023-01-12 06:28 | Day surgery (SDC) | payer MEDICARE, OTHER ==
[2023-01-12] MEDS ORDERED: LACTATED RINGERS 1,000 ML IV ONE (06:42)
--- NOTE | 2023-01-12 07:03 | ANESTHESIA ---
Pre-Anesthesia VS, & Labs - Diagnosis screening - Procedure colonoscopy Height: 6 ft 2 in Weight (kg): 114.6 kg Body Mass Index: 32.4 BMI Classification: Obese - NPO >8 hours - Lab Results Lab results reviewed: Yes Home Medications and Allergies Allergies/Adverse Reactions: Allergies Allergy/AdvReac Type Severity Reaction Status Date / Time No Known Drug Allergies Allergy Verified 04/05/22 10:20 Anes History & Medical History - Anesthetic History Anesthesia Complications: reports: No previous complications Family history of Anesthesia Complications: Denies Family history of Malignant Hyperthermia: Denies - Medical History Cardiovascular: reports: None Pulmonary: reports: Sleep apnea, CPAP use (compliant) Gastrointestinal: reports: Colon polyps Urinary: reports: Kidney stones, Other Musculoskeletal: reports: None Endocrine/Autoimmune: reports: None Skin: reports: Psoriasis Smoking Status: Never smoker Psychosocial: reports: No issues indicated - Surgical History General: reports: Colonoscopy, Other Eyes Ears Nose Throat (EENT): reports: Other Urologic: reports: Prostatic surgery Exam General: Alert, Oriented x3, Cooperative Dental: WNL Mouth Openin Fingerbreadth Neck Mobility: Normal Mallampati classification: II Thyromental Distance: 4-6 cm Respiratory: Lungs clear Cardiovascular: Regular rate Plan Anesthesia Type: Total IV Consent for Procedure(s) Verified and Reviewed: Yes Code Status: Attempt Resuscitation ASA classification: 2-Mild systemic disease Is this case an emergency?: No
[2023-01-12] MEDS ORDERED: SIMETHICONE 40 MG/0.6 ML 15 ML BOTTLE PO ONE (07:41)
[2023-01-12] MEDS ORDERED: PROPOFOL 200 MG/20 ML VIAL IVP ONE (07:51)
[2023-01-12] MEDS ORDERED: PROPOFOL IV ONE (07:51)
[2023-01-12 08:33] VITALS: BP 114/88; O2SAT 96
--- NOTE | 2023-01-12 10:38 | ANESTHESIA POST OP EVALUATION ---
Anesthesia Post Eval - Post Anesthesia Eval Vitals: Last Vital Signs Temp 36.2 C L 01/12/23 08:13 Pulse 69 01/12/23 08:28 Resp 14 01/12/23 08:28 BP 114/88 H 01/12/23 08:28 Pulse Ox 96 01/12/23 08:28 O2 Flow Rate CV Function Including HR & BP: Stable Pain Control: Satisfactory Nausea & Vomiting: Negative Mental Status: Baseline Respiratory Status: Airway Patent Hydration Status: Satisfactory Anesthesia Complications: None
== END 2023-01-12 06:29 | disposition home or self-care (01) ==
LOC: SDS 06:28
PROVIDERS: ATTEND Surgery
DX: Z12.11 Encounter for screening for malignant neoplasm of colon (principal); D12.4 Benign neoplasm of descending colon; K57.30 Diverticulosis of large intestine without perforation or abscess without bleeding; E66.9 Obesity, unspecified; Z68.32 Body mass index [BMI] 32.0-32.9, adult; G47.30 Sleep apnea, unspecified
CPT/HCPCS: 45385; A9270; J7120

== ENCOUNTER 2023-04-05 08:53 | Outpatient (CLI) | payer MEDICARE, OTHER ==
--- NOTE | 2023-04-05 09:16 | Sleep Patient Instructions ---
Sleep Center Visit Summary - Patient Visit Information Reason for Visit: Annual follow-up - Patient Instructions Additional Instructions: You will continue with CPAP therapy with pressure set at 11 cmH2O. A supply prescription will be updated with your DME. We encourage you to continue to try to lose weight. Please follow up with the sleep care office in 1 year. - Clinic Information Contact: [facility] [address] [place] [address] [email or web address] T: [phone]
--- NOTE | 2023-04-05 09:18 | SLEEP CARE CONSULTATION ---
Information from patient questionnaire entered by Trish Jason. I have reviewed and concur with the information entered by Trish Jason. This document represents the service I personally performed and the decisions made by , Amrita King ARNP. History of Present Illness Service Date and Time: 04/05/2023 0853 Previous diagnosis: Moderate, Obstructive Sleep Apnea-Hypopnea Syndrome AHI: 17 (in 2009) Reason for follow up: annual (LAST SEEN 03/2022) Equipment type: CPAP (Resvent IBreeze, s/u 12/08/2020, MACHINE NEEDED) Equipment obtained from: [employer] (getting supplies as needed) Mask style: Nasal (cushion) Backup mask available: Yes (old mask) Last cushion change: 1 month Prior sleep studies: Yes Year and Where: 2009 - [facility] Type of Sleep Study: Polysomnography HPI additional information: HALEY JAMES was diagnosed to have moderate, AHI 17, obstructive sleep apnea- hypopnea syndrome and returned today for CPAP therapy annual follow-up. Sleep Study - Results Type of Sleep Study: Polysomnography [facility] Yes [facility] Compliance Data - Data Reviewed with Patient Average duration of nightly device use: 9.4 hours Compliance rate %: 99 (362/365 days used) Current pressure setting (cmH2O): 11 Average residual AHI: 0.5 Central apnea: 0.4 Obstructive apnea: 0 Average large leak: 2.1 L/min Subjective Patient concerns: denies: aerophagia, mask discomfort, air blowing in eyes, mask leak noise, condensation in mask/hose, nasal congestion, dry mouth, nose, throat, epistaxis Observed to snore while using device: No Current pressure setting perceived as: comfortable On therapy, patient: reports: sleeping better, awakening more refreshed, being more awake and alert during the day, more rested overall. denies: drowsiness while driving Initial [place] Sleepiness Scale score: 7 (in 2008) Current [place] Sleepiness Scale score: 1 (04/05/23) Allergies and Home Medications Known drug allergies: No Drug allergies reviewed: Yes Home medication list reviewed: Yes (no changes) Allergy and home medication list: Allergies No Known Drug Allergies Allergy (Verified 04/03/23 08:49) Review of Systems Review of systems same as previous: Yes (NO CHANGE) Physical Exam Vital signs obtained and entered by: TRISH Wells MA Blood Pressure: 135/74 (LEFT ARM) Cuff size: regular Heart Rate: 63 O2 Saturation: 98 Height: 6 ft 2 in Weight: 249 lb 9.6 oz Weight change since last visit: 11 lb gain Body Mass Index: 32.0 BMI Classification: Obese Impression and Plan 1. Obstructive Sleep Apnea-Hypopnea Syndrome, moderate, with good treatment compliance and good apnea control. On CPAP therapy, the patient has better sleep quality and is more rested overall. Patient has significant improvement of their sleep apnea and is satisfied with current CPAP therapy. Patient denies problems with oral dryness, nasal congestion, epistaxis, skin irritation or aerophagia. Patient's apnea severity and rationale for treatment to reduce apnea, improve sleep quality and reduce cardiovascular and cerebrovascular events was reviewed. I also reviewed the benefit of consistent device use of CPAP for gastric reflux. 2. Obesity, unspecified. Currently patients BMI is 32. He has gained weight s silvia last appointment. Obesity increases the risk of apnea, CPAP pressure requirements and overall health risks especially cardiovascular and diabetes. Thus patient is advised to lose weight. * Continue CPAP pressure at 11 cmH2O * Update supply prescription * Notify me if snoring with mask or feeling that the pressure is too much or too little * Attempt to lose weight * Call this office if any problems using CPAP * Return for follow up in 12 months, or sooner if concerns arise Counseling Topics: Spare mask, Weight loss health impact Prescriptions: Device supplies Follow up with Sleep Care in: 1 year Visit Type: In Office Time Spent with Patient (minutes): 15 Provider Statement: I spent 100% of the Face to Face Visit with the patient with greater than 50% spent counseling the patient and coordination of care.
[2023-04-05 09:25] VITALS: BP 135/74; O2SAT 98
== END 2023-04-05 08:54 | disposition home or self-care (01) ==
LOC: SC 08:53
PROVIDERS: ATTEND Nurse Practitioner Family
DX: G47.33 Obstructive sleep apnea (adult) (pediatric) (principal); E66.9 Obesity, unspecified; Z68.32 Body mass index [BMI] 32.0-32.9, adult
CPT/HCPCS: 99212; G0463

== ENCOUNTER 2023-10-30 11:11 | Outpatient (CLI) | payer MEDICARE, OTHER | END 2023-10-30 11:12 | disposition home or self-care (01) | LOC: LAB.S 11:11 | PROVIDERS: ATTEND Urology | DX: Z85.46 Personal history of malignant neoplasm of prostate (principal) | CPT/HCPCS: 36415; 84153 ==